=== PATIENT | female | born 1955 | race Caucasian/White ===

== ENCOUNTER 2017-05-12 03:17 | Emergency (ER) ==
[2017-05-12] MEDS ORDERED: PROTONIX IV IVP STA (03:35)
[2017-05-12] MEDS ORDERED: DEMEROL 25 MG/ML SYRINGE IVP STA (03:35)
[2017-05-12] MEDS ORDERED: ZOFRAN 4 MG/2 ML IVP STA (03:35)
--- NOTE | 2017-05-12 03:38 | ED.PDOC ---
General ED Provider: Dr. AMRIT MENCHACA Chief Complaint: Nausea/Vomiting Stated Complaint: Been vomiting since tuesday, not able to keep anything down, watery, and avtar material, non bloody. hurting in the upper belly. Time Seen by Physician: 03:36 Mode of Arrival: Walk-In Information Source: Patient Primary Care Provider: TEE ÁLVAREZ Nursing and Triage Documentation Reviewed and Agree: Yes GI Complaint Exam - Abdominal Pain Complaint/Exam Onset: Gradual Symptoms Are: Still present Timing: Constant Initial Severity: Moderate Current Severity: Moderate Location of Pain: Epigastric Radiates To: Reports: Back Character: Reports: Dull, Aching Aggravating: Reports: Movement, Food Alleviating: Reports: Vomiting Associated Signs and Symptoms: Reports: Nausea, Vomiting, Decreased activity. Denies: Diaphoresis, Fever, Cough, Chest pain, Dizziness, Back pain, Constipation, Blood in stool, Dysuria, Urinary frequency, Decreased urine output , Decreased appetite, Vaginal bleeding, Vaginal discharge, Diarrhea, Sore throat AAA Risk Factors: Reports: None Cardiac Risk Factors: Reports: None Ectopic Risk Factors: Reports: None Ovarian Torsion Risk Factors: Reports: None Surgical Obstruction Risk Factors: Reports: None Related Surgical History: Reports: None Patient Rh Status: Unknown Abdominal Findings: Absent: Pulsatile mass, Abdominal distention, Unequal femoral pulses Differential Diagnoses: Gastroenteritis, Pancreatitis, PUD Review of Systems - Review Of Systems Constitutional: Reports: Malaise, Weakness Eyes: Reports: No symptoms Ears, Nose, Mouth, Throat: Reports: No symptoms Respiratory: Reports: No symptoms Cardiac: Reports: No symptoms GI: Reports: Abdomen distended, Abdominal pain, Nausea : Reports: No symptoms Musculoskeletal: Reports: No symptoms Skin: Reports: No symptoms Neurological: Reports: No symptoms Endocrine: Reports: No symptoms Hematologic/Lymphatic: Reports: No symptoms All Other Systems: Reviewed and Negative Past Medical History - Past Medical History Previously Healthy: Yes Endocrine: Reports: None Cardiovascular: Reports: None Respiratory: Reports: COPD Hematological: Reports: Anemia Gastrointestinal: Reports: None Genitourinary: Reports: None Neuro/Psych: Reports: None Musculoskeletal: Reports: None Cancer: Reports: None Last Menstrual Period: PT HAS HAD A HYSTERECTOMY - Surgical History General Surgical History: Reports: Adenoidectomy, Hysterectomy, Cholecystectomy , Other - Family History Family History: Reports: Unknown - Social History Smoking Status: Current every day smoker, Heavy tobacco smoker Smoking Cessation Counseling Time: > 10 min Hx Substance Use: No Alcohol Screening: None - Immunizations Tetanus Shot up to Date: Yes Physical Exam - Physical Exam Appearance: Ill-appearing, Thin Ill-appearing: Moderate Pain Distress: Moderate Eyes: SHO, EOMI, Conjunctiva clear ENT: Ears normal, Nose normal, Oropharynx normal Respiratory: Airway patent, Breath sounds clear, Breath sounds equal, Respirations nonlabored Cardiovascular: RRR, Pulses normal, No rub, No murmur GI/: Soft, Tender, Bowel sounds hypoactive Musculoskeletal: Normal strength, ROM intact, No edema, No calf tenderness Skin: Warm, Dry, Normal color Neurological: Sensation intact, Motor intact, Reflexes intact, Cranial nerves intact, Alert, Oriented Psychiatric: Affect appropriate, Mood appropriate Interpretation - Radiology Interpretation Radiology Interpretation By: Radiologist Radiology Results: Positive (gastroenteritis) Exam Interpreted: CT Scan Critical Care Note - Critical Care Note Total Time (mins): 0 Course - Course Hematology/Chemistry: 05/12/17 03:40 05/12/17 03:40 Orders, Labs, Meds: Lab Review 05/12/17 03:40 WBC 10.87 H RBC 5.18 Hgb 15.6 Hct 44.6 MCV 86.1 MCH 30.1 MCHC 35.0 RDW Coeff of David 14.8 Plt Count 284 Immature Gran % (Auto) 0.4 Neut % (Auto) 61.3 Lymph % (Auto) 26.6 Edmonson % (Auto) 10.7 H Eos % (Auto) 0.4 Baso % (Auto) 0.6 Immature Gran # (Auto) 0.0 Neut # 6.7 Lymph # 2.9 Edmonson # 1.2 Eos # 0.0 Baso # 0.1 Sodium 135 L Potassium 3.5 Chloride 98 Carbon Dioxide 21 L Anion Gap 19.5 BUN 14 Creatinine 0.72 Estimated GFR (MDRD) 82.00 BUN/Creatinine Ratio 19.44 Glucose 81 L Calcium 9.2 Total Bilirubin 0.74 AST 19 ALT 13 Alkaline Phosphatase 79 Total Protein 7.0 Albumin 3.9 Globulin 3.1 Albumin/Globulin Ratio 1.26 Amylase 53 Lipase 21 Orders Category Date Time Status ED IV/MEDIPORT/POWERPORT .ONCE EMERGENCY 05/12/17 03:35 Active AMYLASE Stat LAB 05/12/17 03:40 Completed CBC W/ AUTO DIFF Stat LAB 05/12/17 03:40 Completed COMPREHENSIVE METABOLIC PANEL Stat LAB 05/12/17 03:40 Completed LIPASE Stat LAB 05/12/17 03:40 Completed 0.9 % Sodium Chloride [Saline Flush] MEDS 05/12/17 03:35 Ordered 1 syr IVF PRN PRN Meperidine HCl/Pf [Demerol 25 mg/ml Syringe] MEDS 05/12/17 03:35 Discontinued 25 mg IVP ONCE STA Ondansetron HCl/Pf [Zofran 4 mg/2 ml] MEDS 05/12/17 03:35 Discontinued 4 mg IVP ONCE STA Pantoprazole Sodium [Protonix IV] MEDS 05/12/17 03:35 Discontinued 40 mg IVP ONCE STA Sodium Chloride 0.9% [Sodium Chloride] 1,000 ml MEDS 05/12/17 04:08 Active IV 100 mls/hr CT ABDOMEN/PELVIS WO CONTRAST Stat RADS 05/12/17 03:35 Completed Medications Generic Name Dose Route Start Last Admin Trade Name Freq PRN Reason Stop Dose Admin Sodium Chloride 1,000 mls @ 100 mls/hr 05/12/17 04:08 05/12/17 04:28 Sodium Chloride IV 05/12/17 14:07 100 mls/hr .Q10H STA Administration Sodium Chloride 1 syr 05/12/17 03:35 05/12/17 04:03 Saline Flush IVF 1 syr PRN PRN Administration To flush IV Discontinued Medications Generic Name Dose Route Start Last Admin Trade Name Freq PRN Reason Stop Dose Admin Meperidine HCl 25 mg 05/12/17 03:35 05/12/17 04:03 Demerol 25 Mg/Ml Syringe IVP 05/12/17 03:36 25 mg ONCE STA Administration Ondansetron HCl 4 mg 05/12/17 03:35 05/12/17 04:03 Zofran 4 Mg/2 Ml IVP 05/12/17 03:36 4 mg ONCE STA Administration Pantoprazole Sodium 40 mg 05/12/17 03:35 05/12/17 04:03 Protonix Iv IVP 05/12/17 03:36 40 mg ONCE STA Administration Vital Signs: Temp Pulse Resp BP Pulse Ox 05/12/17 03:18 98.8 F 78 20 134/94 H 95 Departure - Departure Time of Disposition: 03:55 Disposition: HOME SELF-CARE Discharge Problem: Gastroenteritis Instructions: Dehydration (ED) Condition: Stable Pt referred to PMD for follow-up: Yes Additional Instructions: INCREASE HYDRATION SOFT DIET FOR 3-4 DAYS. F/U WITH PMD Prescriptions: Ondansetron HCl [Zofran] 4 mg PO TID #14 tablet Allergies/Adverse Reactions: Allergies Penicillins Adverse Reaction (Verified 05/12/17 03:26) Hives Home Medications: Ambulatory Orders Hydrocodone/Acetaminophen [Hydrocodon-Acetaminoph 7.5-500] 1 each PO BID PRN Diazepam 5 mg PO TID 12/08/14 Albuterol Sulfate [Proair Hfa] 2 puff IH BID 09/17/15 Pantoprazole Sodium [Protonix] 40 mg PO DAILY LAB #30 tablet. 09/20/15 Ondansetron HCl [Zofran] 4 mg PO TID #14 tablet 05/12/17 Disposition Discussed With: Patient, Family
[2017-05-12 03:46] VITALS: BP 134/94; TEMP 98.8; BMI 18.8
[2017-05-12 03:46] LABS: BASOPHILS # (AUTO) 0.1 K/uL (0-0.2); BASOPHILS % (AUTO) 0.6 % (0.0-3.0); EOSINOPHILS % (AUTO) 0.4 % (0.0-7.0); HEMATOCRIT 44.6 % (37.0-47.0); HEMOGLOBIN 15.6 g/dl (12.0-16.0); IMMATURE GRANULOCYTE % (AUTO) 0.4 % (0.0-5.0); LYMPHOCYTES # (AUTO) 2.9 K/uL (0.60-3.4); LYMPHOCYTES % (AUTO) 26.6 (10.0-50.0); MEAN CORPUSCULAR HEMOGLOBIN 30.1 pg (27.0-31.0); MEAN CORPUSCULAR VOLUME 86.1 fl (81.0-99.0); MONOCYTES # (AUTO) 1.2 K/uL (0.4-2.0); MONOCYTES % (AUTO) 10.7 (0-10); NEUTROPHILS # (AUTO) 6.7 K/ul (2.0-6.9); NEUTROPHILS % (AUTO) 61.3; PLATELET COUNT 284 10^3/uL (140-440); RED BLOOD COUNT 5.18 10^6/ul (4.20-5.40); WHITE BLOOD COUNT 10.87 K/ul (4.6-10.2)
[2017-05-12 04:03] LABS: ALBUMIN 3.9 g/dL (3.4-5.0); ALBUMIN/GLOBULIN RATIO 1.26; ANION GAP 19.5; BILIRUBIN,TOTAL 0.74 mg/dL (0.00-1.20); BUN/CREATININE RATIO 19.44; CALCIUM 9.2 mg/dL (8.2-10.2); CREATININE 0.72 mg/dL (0.60-1.30); POTASSIUM 3.5 mmol/L (3.5-5.10)
[2017-05-12] MEDS ORDERED: SODIUM CHLORIDE 1,000 ML IV STA (04:08)
--- NOTE | 2017-05-12 04:45 | CT ---
EXAM: CT scan abdomen pelvis without contrast HISTORY: Abdominal pain with nausea vomiting COMPARISON: CT scan abdomen pelvis 09/18/2015 FINDINGS: Contiguous axial images were obtained from lung bases to the symphysis pubis without cont rast utilizing 3-mm collimation. Sagittal and coronal reconstructions were imaged and reviewed.. S table scarring is noted at the right lung base. There has been prior cholecystectomy.. The liver p ancreas and adrenal glands have normal unenhanced CT appearance. There is a small spleen which cont ains calcification. . Stomach mildly distended with air fluid. There are prominent small bowel loo ps within the left upper quadrant. Atherosclerotic changes are seen involving the aorta without aneu rysm formation. There is an IVC filter.. There has been prior hysterectomy. There is no evidence o f free fluid or inflammatory changes.. Degenerative changes are seen within the lumbar spine and bi lateral hips. IMPRESSION: Stable right basilar scarring. Prior cholecystectomy. IVC filter. ASVD without aneurysm. Prior hysterectomy. Mild fluid distension of the stomach with prominent small bowel loops left upper quadrant. Findings may related to gastroenteritis. No evidence of obstruction or free fluid.
[2017-05-13 13:57] VITALS: BMI 19.5
== END 2017-05-12 06:10 | disposition home or self-care (01) ==
LOC: ED 03:17
DX: K52.9 Noninfective gastroenteritis and colitis, unspecified (principal); E86.0 Dehydration; Z79.899 Other long term (current) drug therapy; F17.210 Nicotine dependence, cigarettes, uncomplicated
CPT/HCPCS: 36415; 80053; 82150; 83690; 85025; 96361; 96374; 96375; 99284

== ENCOUNTER 2017-05-13 10:27 | Inpatient (IN) ==
[2017-05-13 11:02] LABS: BASOPHILS # (AUTO) 0.1 K/uL (0-0.2); BASOPHILS % (AUTO) 0.3 % (0.0-3.0); HEMATOCRIT 48.6 % (37.0-47.0); HEMOGLOBIN 16.8 g/dl (12.0-16.0); IMMATURE GRANULOCYTE % (AUTO) 0.3 % (0.0-5.0); LYMPHOCYTES # (AUTO) 1.5 K/uL (0.60-3.4); LYMPHOCYTES % (AUTO) 8.2 (10.0-50.0); MEAN CORPUSCULAR HEMOGLOBIN 29.9 pg (27.0-31.0); MEAN CORPUSCULAR HGB CONC 34.6 (31.8-35.4); MEAN CORPUSCULAR VOLUME 86.6 fl (81.0-99.0); MONOCYTES # (AUTO) 1.3 K/uL (0.4-2.0); MONOCYTES % (AUTO) 7.4 (0-10); NEUTROPHILS # (AUTO) 14.8 K/ul (2.0-6.9); NEUTROPHILS % (AUTO) 83.8; PLATELET COUNT 276 10^3/uL (140-440); RED BLOOD COUNT 5.61 10^6/ul (4.20-5.40); WHITE BLOOD COUNT 17.66 K/ul (4.6-10.2)
[2017-05-13] MEDS ORDERED: SODIUM CHLORIDE 1,000 ML IV STA (11:07)
[2017-05-13] MEDS ORDERED: GI COCKTAIL PO STA (11:08)
[2017-05-13] MEDS ORDERED: ZOFRAN 4 MG/2 ML IVP STA (11:08)
[2017-05-13 11:25] LABS: ALANINE AMINOTRANSFERASE 15 U/L (12-78); ALBUMIN/GLOBULIN RATIO 1.21; ALKALINE PHOSPHATASE 87 U/L (53-141); AMYLASE 54 U/L (25-115); ANION GAP 20.6; ASPARTATE AMINO TRANSFERASE 21 U/L (15-37); BILIRUBIN,TOTAL 0.96 mg/dL (0.00-1.20); BLOOD UREA NITROGEN 13 mg/dL (7-18); BUN/CREATININE RATIO 17.56; CALCIUM 9.5 mg/dL (8.2-10.2); CARBON DIOXIDE 22 mmol/L (23-31); CHLORIDE 98 mmol/L (98-107); CREATINE KINASE 27 U/L; CREATININE 0.74 mg/dL (0.60-1.30); GLUCOSE 91 mg/dL (82-115); LIPASE 13 U/L (8-78); POTASSIUM 3.6 mmol/L (3.5-5.10); SODIUM 137 mmol/L (136-145); TOTAL PROTEIN 7.3 g/dL (5.8-8.1)
--- NOTE | 2017-05-13 11:54 | CT ---
EXAM: CT Abdomen with contrast. CT Pelvis with contrast. HISTORY: Upper abdominal pain and vomiting. COMPARISON: 05/12/2017. TECHNIQUE: Multiple axial images of the abdomen and pelvis were obtained following intravenous admi nistration of Omnipaque-300, low osmolar. Images were reformatted in the coronal plane. FINDINGS: Old rib fractures, pubic ring fractures and sacral coccygeal fracture noted. Right basil ar scarring appears stable. Gallbladder is absent. The liver, pancreas, spleen, adrenal glands, and kidneys are without acute a bnormality. Tiny left renal cyst noted. There is moderate fluid distension of the stomach. The small and large bowel are normal in caliber without evidence for obstruction or inflammatory process. The appendix is not seen. Nonenlarged me senteric lymph nodes are present. Uterus is absent. Urinary bladder is unremarkable. Phleboliths noted in the pelvis. Atherosclerotic calcifications are present. Inferior vena cava filter noted. No free fluid or free air detected. IMPRESSION: Moderate fluid distension of the stomach could be due to gastroenteritis.
--- NOTE | 2017-05-13 12:14 | ED.PDOC ---
General ED Provider: Dr. BELINDA WEBBER Chief Complaint: Nausea/Vomiting Stated Complaint: abdominal pain Time Seen by Physician: 10:30 (seen last night in ER) Mode of Arrival: Walk-In Information Source: Patient, Family Exam Limitations: No limitations Primary Care Provider: TEE ÁLVAREZ Nursing and Triage Documentation Reviewed and Agree: Yes (SEEN WITH NURSING AT ALL TIMES AND ASAEL PA STUDENT) GI Complaint Exam - Abdominal Pain Complaint/Exam Onset: Gradual Duration: 1 DAY Symptoms Are: Still present Timing: Intermittent Initial Severity: Moderate Current Severity: Moderate Location of Pain: Diffuse Character: Reports: Aching Aggravating: Reports: None Alleviating: Reports: None Associated Signs and Symptoms: Denies: Diaphoresis, Fever, Cough, Chest pain, Dizziness, Back pain, Constipation, Blood in stool, Dysuria, Urinary frequency, Decreased urine output, Decreased appetite, Vaginal bleeding, Vaginal discharge , Nausea, Vomiting, Diarrhea, Sore throat, Decreased activity Related History: Reports: Similar episode AAA Risk Factors: Reports: None Cardiac Risk Factors: Reports: None Ectopic Risk Factors: Reports: None Ovarian Torsion Risk Factors: Reports: None Surgical Obstruction Risk Factors: Reports: None Related Surgical History: Reports: None Patient Rh Status: Unknown Abdominal Findings: Present: None Differential Diagnoses: Appendicitis, Bowel Obstruction, Constipation, Gastroenteritis, Pancreatitis, UTI Quality Indicators for AMI: EKG in 10min. Quality Indicators for Cardiac Chest Pain: EKG in 10min. Quality Indicator For Non-Traumatic Chest Pain/Syncope: EKG Performed Review of Systems - Review Of Systems Constitutional: Reports: No symptoms Eyes: Reports: No symptoms Ears, Nose, Mouth, Throat: Reports: No symptoms Respiratory: Reports: No symptoms Cardiac: Reports: No symptoms GI: Reports: Abdominal pain : Reports: No symptoms Musculoskeletal: Reports: No symptoms Skin: Reports: No symptoms Neurological: Reports: No symptoms Endocrine: Reports: No symptoms Hematologic/Lymphatic: Reports: No symptoms All Other Systems: Reviewed and Negative Past Medical History - Past Medical History Previously Healthy: Yes Endocrine: Reports: None Cardiovascular: Reports: None Respiratory: Reports: COPD Hematological: Reports: Anemia Gastrointestinal: Reports: None Genitourinary: Reports: None Neuro/Psych: Reports: None Musculoskeletal: Reports: None Cancer: Reports: None Last Menstrual Period: 1979 - Surgical History General Surgical History: Reports: Adenoidectomy, Hysterectomy, Cholecystectomy , Other - Family History Family History: Reports: Unknown - Social History Smoking Status: Current every day smoker, Heavy tobacco smoker Hx Substance Use: No Alcohol Screening: None - Immunizations Tetanus Shot up to Date: Yes Physical Exam - Physical Exam Appearance: Well-appearing, No pain distress, Well-nourished Eyes: SHO, EOMI, Conjunctiva clear ENT: Ears normal, Nose normal, Oropharynx normal Respiratory: Airway patent, Breath sounds clear, Breath sounds equal, Respirations nonlabored Cardiovascular: RRR, Pulses normal, No rub, No murmur GI/: Soft, Nontender, No masses, Bowel sounds normal, No Organomegaly Musculoskeletal: Normal strength, ROM intact, No edema, No calf tenderness Skin: Warm, Dry, Normal color Neurological: Sensation intact, Motor intact, Reflexes intact, Cranial nerves intact, Alert, Oriented Psychiatric: Affect appropriate, Mood appropriate Interpretation - Radiology Interpretation Radiology Interpretation By: Radiologist Radiology Results: No acute changes Physician Notification - Case Discussed Physician Notified: RONJTALI Time of Notification: 12:14 (ADMITT) Admit To: Inpatient Critical Care Note - Critical Care Note Total Time (mins): 0 Course - Course Hematology/Chemistry: 05/13/17 10:55 05/13/17 10:55 Orders, Labs, Meds: Lab Review 05/13/17 10:55 WBC 17.66 H D RBC 5.61 H Hgb 16.8 H Hct 48.6 H MCV 86.6 MCH 29.9 MCHC 34.6 RDW Coeff of David 14.7 Plt Count 276 Immature Gran % (Auto) 0.3 Neut % (Auto) 83.8 Lymph % (Auto) 8.2 L Grady % (Auto) 7.4 Eos % (Auto) 0.0 Baso % (Auto) 0.3 Immature Gran # (Auto) 0.1 Neut # 14.8 H Lymph # 1.5 Grady # 1.3 Eos # 0.0 Baso # 0.1 Sodium 137 Potassium 3.6 Chloride 98 Carbon Dioxide 22 L Anion Gap 20.6 BUN 13 Creatinine 0.74 Estimated GFR (MDRD) 80.00 BUN/Creatinine Ratio 17.56 Glucose 91 Calcium 9.5 Total Bilirubin 0.96 AST 21 ALT 15 Alkaline Phosphatase 87 Total Creatine Kinase 27 Troponin I < 0.0100 Total Protein 7.3 Albumin 4.0 Globulin 3.3 Albumin/Globulin Ratio 1.21 Amylase 54 Lipase 13 Orders Category Date Time Status ADMIT PATIENT INPATIENT .TO MEDSURG (NON-MONITORED ADMISSION 05/13/17 12: 08 Ordered BED) EKG-(ED ONLY) Stat CARDIO 05/13/17 10:47 Completed ACTIVITY .BR with BRP CARE 05/13/17 12:08 Ordered NPO REMINDER: IMAGING ONCE CARE 05/13/17 11:09 Completed VITAL SIGNS Q8HR CARE 05/13/17 12:08 Ordered REGULAR DIET DIETARY 05/13/17 Lunch Ordered ED IV/MEDIPORT/POWERPORT .ONCE EMERGENCY 05/13/17 10:47 Active ED IV/MEDIPORT/POWERPORT .ONCE EMERGENCY 05/13/17 11:07 Active AMYLASE Stat LAB 05/13/17 10:55 Completed CBC W/ AUTO DIFF DAILY@0600 LAB 05/14/17 06:00 Ordered CBC W/ AUTO DIFF DAILY@0600 LAB 05/15/17 06:00 Ordered CBC W/ AUTO DIFF DAILY@0600 LAB 05/16/17 06:00 Ordered CBC W/ AUTO DIFF DAILY@0600 LAB 05/17/17 06:00 Ordered CBC W/ AUTO DIFF DAILY@0600 LAB 05/18/17 06:00 Ordered CBC W/ AUTO DIFF DAILY@0600 LAB 05/19/17 06:00 Ordered CBC W/ AUTO DIFF DAILY@0600 LAB 05/20/17 06:00 Ordered CBC W/ AUTO DIFF DAILY@0600 LAB 05/21/17 06:00 Ordered CBC W/ AUTO DIFF DAILY@0600 LAB 05/22/17 06:00 Ordered CBC W/ AUTO DIFF DAILY@0600 LAB 05/23/17 06:00 Ordered CBC W/ AUTO DIFF DAILY@0600 LAB 05/24/17 06:00 Ordered CBC W/ AUTO DIFF DAILY@0600 LAB 05/25/17 06:00 Ordered CBC W/ AUTO DIFF DAILY@0600 LAB 05/26/17 06:00 Ordered CBC W/ AUTO DIFF DAILY@0600 LAB 05/27/17 06:00 Ordered CBC W/ AUTO DIFF DAILY@0600 LAB 05/28/17 06:00 Ordered CBC W/ AUTO DIFF DAILY@0600 LAB 05/29/17 06:00 Ordered CBC W/ AUTO DIFF DAILY@0600 LAB 05/30/17 06:00 Ordered CBC W/ AUTO DIFF DAILY@0600 LAB 05/31/17 06:00 Ordered CBC W/ AUTO DIFF DAILY@0600 LAB 06/01/17 06:00 Ordered CBC W/ AUTO DIFF DAILY@0600 LAB 06/02/17 06:00 Ordered CBC W/ AUTO DIFF Stat LAB 05/13/17 10:55 Completed COMPREHENSIVE METABOLIC PANEL Stat LAB 05/13/17 10:55 Completed CREATINE KINASE Stat LAB 05/13/17 10:55 Completed LIPASE Stat LAB 05/13/17 10:55 Completed TROPONIN I Stat LAB 05/13/17 10:55 Completed UA [URINALYSIS C & S IF INDICATED] Stat LAB 05/13/17 11:09 Uncollected 0.9 % Sodium Chloride [Saline Flush] MEDS 05/13/17 10:47 Active 1 syr IVF PRN PRN 0.9 % Sodium Chloride [Saline Flush] MEDS 05/13/17 11:07 Active 1 syr IVF PRN PRN Albuterol Sulfate [Proair Hfa] MEDS 05/13/17 21:00 Ordered 2 puff IH BID Mag-Al Plus//Lidocaine [Gi Cocktail] MEDS 05/13/17 11:08 Discontinued 30 ml PO ONCE STA Ondansetron HCl/Pf [Zofran 4 mg/2 ml] MEDS 05/13/17 11:08 Discontinued 4 mg IVP ONCE STA Sodium Chloride 0.9% [Sodium Chloride] 1,000 ml MEDS 05/13/17 12:30 Ordered IV 250 mls/hr Sodium Chloride 0.9% [Sodium Chloride] 1,000 ml MEDS 05/13/17 11:[address] ABDOMEN/PELVIS W CONTRAST Stat RADS 05/13/17 11:09 Completed Medications Generic Name Dose Route Start Last Admin Trade Name Freq PRN Reason Stop Dose Admin Albuterol Sulfate 2 puff 05/13/17 21:00 Proair Hfa IH BID DEE DEE Sodium Chloride 1,000 mls @ 250 mls/hr 05/13/17 12:30 Sodium Chloride IV .Q4H DEE DEE Sodium Chloride 1 syr 05/13/17 10:47 Saline Flush IVF PRN PRN To flush IV Sodium Chloride 1 syr 05/13/17 11:07 05/13/17 11:18 Saline Flush IVF 1 syr PRN PRN Administration To flush IV Discontinued Medications Generic Name Dose Route Start Last Admin Trade Name Freq PRN Reason Stop Dose Admin Al Hydroxide/Mg Hydroxide 30 ml 06/30/17 11:08 05/13/17 11:16 Gi Cocktail PO 05/13/17 11:09 30 ml ONCE STA Administration Sodium Chloride 1,000 mls @ 1,000 mls/hr 05/13/17 11:07 05/13/17 11:18 Sodium Chloride IV 05/13/17 12:06 1,000 mls/hr BOLUS STA Administration Ondansetron HCl 4 mg 05/13/17 11:08 05/13/17 11:17 Zofran 4 Mg/2 Ml IVP 05/13/17 11:09 4 mg ONCE STA Administration Vital Signs: Temp Pulse Resp BP Pulse Ox 05/13/17 10:27 98.3 F 101 H 20 113/80 93 L Departure - Departure Time of Disposition: 12:15 Disposition: ADMITTED INPATIENT Discharge Problem: Abdominal pain Qualifiers: Abdominal location: unspecified location Qualifier Code: (R10.9) Unspecified abdominal pain Instructions: Abdominal Pain (ED) Condition: Good Pt referred to PMD for follow-up: No Additional Instructions: Please call your Family Physician as soon as possible to schedule a follow-up appointment. Allergies/Adverse Reactions: Allergies Penicillins Adverse Reaction (Verified 05/12/17 03:26) Hives Home Medications: Ambulatory Orders Hydrocodone/Acetaminophen [Hydrocodon-Acetaminoph 7.5-500] 1 each PO BID PRN Diazepam 5 mg PO TID 12/08/14 Albuterol Sulfate [Proair Hfa] 2 puff IH BID 09/17/15 Pantoprazole Sodium [Protonix] 40 mg PO DAILY LAB #30 tablet. 09/20/15 Ondansetron HCl [Zofran] 4 mg PO TID #14 tablet 05/12/17
[2017-05-13] MEDS ORDERED: SODIUM CHLORIDE 1,000 ML IV SCH (12:30)
[2017-05-13] MEDS ORDERED: ZOFRAN 4 MG/2 ML IVP SCH (13:00)
[2017-05-13] MEDS: DEMEROL 25 MG/ML SYRINGE IVP SCH ×2 (13:11→18:25)
[2017-05-13 13:57] VITALS: BMI 19.5
[2017-05-13] MEDS: PROTONIX IV IVP SCH (14:25)
[2017-05-13 15:32] LABS: BILIRUBIN,URINE 1+ (NEGATIVE); KETONES,URINE 3+ (NEGATIVE); LEUKOCYTE ESTERASE ,URINE Negative (NEGATIVE); NITRITE,URINE Negative (NEGATIVE); PH,URINE 5.5 (5-9); PROTEIN,URINE Negative (NEGATIVE); URINE, BLOOD 1+ (NEGATIVE)
[2017-05-13 15:47] LABS: ADD URINE MICROSCOPIC YES
[2017-05-13 15:50] LABS: GRANULAR CASTS,URINE 0-2 (NOT PRESENT)
[2017-05-13] MEDS: SODIUM CHLORIDE 1,000 ML IV SCH (18:43)
[2017-05-13] MEDS ORDERED: ROCEPHIN ONE (20:07)
[2017-05-13] MEDS: ZOFRAN 4 MG/2 ML IVP PRN (20:16)
[2017-05-13] MEDS: DEMEROL 25 MG/ML SYRINGE IVP PRN (20:16)
[2017-05-13] MEDS: PROAIR HFA IH SCH (20:19)
[2017-05-13] MEDS ORDERED: ROCEPHIN 1 GM in SODIUM CHLORIDE 50 ML IV SCH (20:30)
[2017-05-13] MEDS: GI COCKTAIL PO SCH (22:09)
[2017-05-14 04:25] LABS: BASOPHILS # (AUTO) 0.1 K/uL (0-0.2); BASOPHILS % (AUTO) 0.5 % (0.0-3.0); EOSINOPHILS # (AUTO) 0.1 K/ul (0.0-0.7); EOSINOPHILS % (AUTO) 0.4 % (0.0-7.0); HEMATOCRIT 39.4 % (37.0-47.0); HEMOGLOBIN 13.6 g/dl (12.0-16.0); IMMATURE GRANULOCYTE % (AUTO) 0.4 % (0.0-5.0); LYMPHOCYTES # (AUTO) 3.9 K/uL (0.60-3.4); MEAN CORPUSCULAR HEMOGLOBIN 30.4 pg (27.0-31.0); MEAN CORPUSCULAR HGB CONC 34.5 (31.8-35.4); MEAN CORPUSCULAR VOLUME 87.9 fl (81.0-99.0); MONOCYTES # (AUTO) 1.3 K/uL (0.4-2.0); MONOCYTES % (AUTO) 9.4 (0-10); NEUTROPHILS # (AUTO) 8.2 K/ul (2.0-6.9); NEUTROPHILS % (AUTO) 60.3; PLATELET COUNT 257 10^3/uL (140-440); RED BLOOD COUNT 4.48 10^6/ul (4.20-5.40); WHITE BLOOD COUNT 13.56 K/ul (4.6-10.2)
[2017-05-14] MEDS: DEMEROL 25 MG/ML SYRINGE IVP PRN ×3 (05:43→22:12)
[2017-05-14] MEDS: ZOFRAN 4 MG/2 ML IVP PRN ×2 (05:43→13:16)
[2017-05-14] MEDS: GI COCKTAIL PO SCH ×3 (09:29→21:07)
[2017-05-14] MEDS: PROAIR HFA IH SCH ×2 (09:29→21:07)
[2017-05-14] MEDS: PROTONIX IV IVP SCH (09:30)
[2017-05-14] MEDS: SODIUM CHLORIDE 1,000 ML IV SCH (14:48)
[2017-05-14] MEDS ORDERED: ROCEPHIN 1 GM in SODIUM CHLORIDE 50 ML IV SCH (21:00)
[2017-05-15 04:21] LABS: BASOPHILS % (AUTO) 0.3 % (0.0-3.0); EOSINOPHILS # (AUTO) 0.2 K/ul (0.0-0.7); EOSINOPHILS % (AUTO) 1.1 % (0.0-7.0); HEMATOCRIT 35.6 % (37.0-47.0); HEMOGLOBIN 12.4 g/dl (12.0-16.0); IMMATURE GRANULOCYTE % (AUTO) 0.4 % (0.0-5.0); LYMPHOCYTES # (AUTO) 3.3 K/uL (0.60-3.4); LYMPHOCYTES % (AUTO) 22.1 (10.0-50.0); MEAN CORPUSCULAR HEMOGLOBIN 30.4 pg (27.0-31.0); MEAN CORPUSCULAR HGB CONC 34.8 (31.8-35.4); MEAN CORPUSCULAR VOLUME 87.3 fl (81.0-99.0); MONOCYTES # (AUTO) 1.6 K/uL (0.4-2.0); MONOCYTES % (AUTO) 10.8 (0-10); NEUTROPHILS # (AUTO) 9.8 K/ul (2.0-6.9); NEUTROPHILS % (AUTO) 65.3; PLATELET COUNT 230 10^3/uL (140-440); RED BLOOD COUNT 4.08 10^6/ul (4.20-5.40); WHITE BLOOD COUNT 15.04 K/ul (4.6-10.2)
[2017-05-15] MEDS: PROAIR HFA IH SCH (09:30)
[2017-05-15] MEDS: GI COCKTAIL PO SCH ×2 (09:31→14:49)
[2017-05-15] MEDS: PROTONIX IV IVP SCH (09:31)
[2017-05-15] MEDS: SODIUM CHLORIDE 1,000 ML IV SCH (11:53)
[2017-05-15 16:00] VITALS: BP 121/71; TEMP 98.5
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
--- NOTE | 2017-06-02 09:26 | PN ---
DATE OF SERVICE: 05/14/17 SUBJECTIVE: The patient was admitted with acute gastroenteritis. The patient still feels weak and tired. Still complains about the epigastric pain and not able to keep anything down. No vomiting with the GI cocktail and Zofran. The patient is still having the abdominal pain. Demerol is helping and she wants to try some food today. REVIEW OF SYSTEMS: CONSTITUTIONAL: No fever, no chills. HEENT: Normal. ENDOCRINE: No weight gain, no weight loss. CVS: No angina symptoms. No CHF symptoms. No palpitations. No atypical chest pain for CAD. No shortness of breath. No PND, no orthopnea. RESPIRATORY: No cough, no hemoptysis. GI: No nausea, no vomiting. No abdominal pain. : No hematuria. No polyuria. MUSCULOSKELETAL:. No joint swelling. PSYCHIATRIC: Not anxious. No depression. No suicidal thoughts. No homicidal thoughts. SKIN: Intact. No rash. PHYSICAL EXAMINATION: V/S: Blood pressure 135/81, respiratory rate 18, heart rate 86 and temperature 98.7 with saturation 94%. GENERAL: Cachetic lady sitting in the bed. HEENT: Normocephalic, atraumatic. Mucosa dry. Epigastric tenderness present. NECK: Supple. No JVD, no carotid bruit. No lymphadenopathy. LUNGS: Clear to auscultation. No rales or rhonchi. HEART: S1, S2 normal. No S3. No murmur, gallop or regurgitation. ABDOMEN: Soft, nontender. Bowel sounds hyperactive. No rigidity. No rebound or guarding. No CVA tenderness. EXTREMITIES: No clubbing, cyanosis or pedal edema. MUSCULOSKELETAL: No joint swelling. NEUROLOGIC: Awake, alert, oriented times three. No focal deficit. LYMPHATIC: No lymph nodes palpable. SKIN: Intact. LABS: WBC 13.56, hgb 13.6, hct 39.4, plt count 257, Sodium 137, potassium 3.6, chloride 98, bicarb 22, BUN 13, creatinine 0.74. ASSESSMENT: 1. Acute gastroenteritis 2. Leukocytosis from the Dehydration 3. History of GERD 4. Osteoarthritis 5. DJD spine 6. COPD 7. Anxiety PLAN: 1. Clear liquid diet 2. Continue Demerol and Zofran 3. Out of bed to chair activity as tolerated 4. Continue Carafate, GI cocktail, Protonix TIME SPENT: More than 30 minutes MTDD
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
== END 2017-05-15 17:35 | disposition home or self-care (01) | DRG 392 ==
LOC: ED 10:27 → MEDSURG A 12:22
PROVIDERS: ADMIT Emergency Medicine; ATTEND Emergency Medicine
DX: K52.9 Noninfective gastroenteritis and colitis, unspecified (principal); K31.0 Acute dilatation of stomach; D72.829 Elevated white blood cell count, unspecified; K27.9 Peptic ulcer, site unspecified, unspecified as acute or chronic, without hemorrhage or perforation; J44.9 Chronic obstructive pulmonary disease, unspecified; M47.9 Spondylosis, unspecified; F41.9 Anxiety disorder, unspecified; F17.210 Nicotine dependence, cigarettes, uncomplicated; Z87.19 Personal history of other diseases of the digestive system; Z90.49 Acquired absence of other specified parts of digestive tract; Z79.899 Other long term (current) drug therapy
CPT/HCPCS: 36415; 80053; 81001; 82150; 82550; 83690; 84484; 85025; 93005; 93010; 96361; 96374; 96375; 99223; 99233; 99239; 99284

== ENCOUNTER 2019-01-28 14:05 | Emergency (ER) ==
[2019-01-28 14:12] VITALS: BP 149/80; TEMP 97.6; BMI 18.4
[2019-01-28] MEDS ORDERED: SODIUM CHLORIDE 1,000 ML IV STA ×2 (15:00→17:54)
[2019-01-28] MEDS ORDERED: ZOFRAN 4 MG/2 ML IVP STA (15:40)
--- NOTE | 2019-01-28 15:52 | ED.PDOC ---
General ED Provider: Dr. RAFAL DYER Chief Complaint: Nausea/Vomiting Stated Complaint: Nausea vomiting. abdominal cramping. Believes ate some food that made her ill. Denies cough or congestion Time Seen by Physician: 14:30 Mode of Arrival: Walk-In Information Source: Patient, Family Exam Limitations: No limitations Primary Care Provider: TEE ÁLVAREZ Referred to ED by: PCP Nursing and Triage Documentation Reviewed and Agree: Yes Does patient meet sepsis criteria?: No System Inflammatory Response Syndrome: Not Applicable Sepsis Protocol: For patient's 13 years and over: Temp is 96.8 and below OR 101 and greater Pulse >90 BPM Resp >20/minute Acutely Altered Mental Status Are patient's symptoms suggestive of a new infection, such as: -Pneumonia -Skin, Soft Tissue -Endocarditis -UTI -Bone, Joint Infection -Implantable Device -Acute Abdominal Infection -Wound Infection -Meningitis -Blood Stream Catheter Infection -Unknown GI Complaint Exam - Abdominal Pain Complaint/Exam Onset: Sudden Duration: 8 hrs Symptoms Are: Still present Timing: Intermittent Initial Severity: Moderate Current Severity: Severe Location of Pain: RUQ, LUQ, Epigastric Radiates To: Reports: Back Character: Reports: Aching, Cramping Aggravating: Reports: Movement Alleviating: Reports: None Associated Signs and Symptoms: Reports: Diaphoresis, Decreased appetite, Nausea , Vomiting AAA Risk Factors: Reports: None Cardiac Risk Factors: Reports: None Ectopic Risk Factors: Reports: None Ovarian Torsion Risk Factors: Reports: None Surgical Obstruction Risk Factors: Reports: None Related Surgical History: Reports: None Abdominal Findings: Present: Other (mild tenderness in mid epigastrium). Absent : Pulsatile mass, Abdominal distention, Rebound tenderness, Peritoneal signs, McBurney's [place] tender, CVA Tenderness Adnexal Exam: Present: Normal Findings Differential Diagnoses: Bowel Obstruction, Gastroenteritis Review of Systems - Review Of Systems Constitutional: Reports: Chills, Malaise, Weakness Eyes: Reports: No symptoms Ears, Nose, Mouth, Throat: Reports: No symptoms Respiratory: Reports: No symptoms Cardiac: Reports: No symptoms GI: Reports: Abdominal pain, Constipated, Nausea, Poor fluid intake, Vomiting : Reports: No symptoms Musculoskeletal: Reports: No symptoms Skin: Reports: No symptoms Neurological: Reports: No symptoms Endocrine: Reports: No symptoms Hematologic/Lymphatic: Reports: No symptoms All Other Systems: Reviewed and Negative Past Medical History - Past Medical History Previously Healthy: Yes Endocrine: Reports: None Cardiovascular: Reports: None Respiratory: Reports: COPD Hematological: Reports: Anemia Gastrointestinal: Reports: None Genitourinary: Reports: None Neuro/Psych: Reports: None Musculoskeletal: Reports: None Cancer: Reports: None Last Menstrual Period: hysterectomy - Surgical History General Surgical History: Reports: Adenoidectomy, Hysterectomy, Cholecystectomy , Other - Family History Family History: Reports: Unknown - Social History Smoking Status: Current every day smoker, Heavy tobacco smoker Hx Substance Use: No Alcohol Screening: None Physical Exam - Physical Exam Appearance: Ill-appearing, Thin Ill-appearing: Moderate Pain Distress: Moderate Eyes: SHO, EOMI, Conjunctiva clear ENT: Ears normal, Nose normal, Oropharynx normal Neck: Supple Respiratory: Airway patent, Breath sounds clear, Breath sounds equal, Respirations nonlabored Cardiovascular: RRR, Pulses normal, No rub, No murmur GI/: Soft, Tender, Bowel sounds hypoactive Musculoskeletal: Normal strength, ROM intact, No edema, No calf tenderness Skin: Warm, Dry, Normal color Neurological: Sensation intact, Motor intact, Reflexes intact, Cranial nerves intact, Alert, Oriented Psychiatric: Affect appropriate, Mood appropriate Interpretation - Radiology Interpretation Radiology Interpretation By: Radiologist Exam Interpreted: CT Scan (abdomen/ gas filled loops small bowel/poss in complete SBO/Changes in chest poss pneunomia) Radiology Results: No acute changes Exam Interpreted: Portable CXR Re-Evaluation - Re-Evaluation Time of Re-Evaluation: 19:00 Status: Improved Vital Signs Stable: Yes Pain Level: none-wants to be discharged Appearance: NAD Lungs: Clear Skin: Warm and Dry Neuro: Alert and Oriented X3 CV: RRR Additional Comments: Abdomen soft and not tender. BS active Critical Care Note - Critical Care Note Total Time (mins): 120 Course - Course Hematology/Chemistry: 01/28/19 16:15 01/28/19 16:15 Orders, Labs, Meds: Lab Review 01/28/19 01/28/19 01/28/19 15:54 16:15 16:15 WBC 21.47 H RBC 4.81 Hgb 14.8 Hct 44.4 MCV 92.3 MCH 30.8 MCHC 33.3 RDW Coeff of David 14.6 Plt Count 417 Immature Gran % (Auto) 0.6 Neut % (Auto) 87.4 Lymph % (Auto) 4.9 L Amador % (Auto) 6.5 Eos % (Auto) 0.2 Baso % (Auto) 0.4 Immature Gran # (Auto) 0.1 Neut # (Auto) 18.8 H Lymph # (Auto) 1.1 Amador # (Auto) 1.4 Eos # (Auto) 0.0 Baso # (Auto) 0.1 Sodium 139.8 Potassium 3.93 Chloride 104.1 Carbon Dioxide 26.8 Anion Gap 12.83 BUN 12.0 Creatinine 0.53 L Estimated GFR (MDRD) 116.00 BUN/Creatinine Ratio 22.64 Glucose 129.8 H Lactic Acid Calcium 8.65 Total Bilirubin 0.37 AST 22.1 ALT 13.3 Alkaline Phosphatase 79.9 Total Protein 7.21 Albumin 3.99 Globulin 3.22 Albumin/Globulin Ratio 1.23 Amylase 78.9 Lipase 38.3 Procalcitonin Urine Color Urine Clarity Urine pH Ur Specific [place] Urine Protein Urine Glucose (UA) Urine Ketones Urine Blood Urine Nitrite Urine Bilirubin Urine Urobilinogen Ur Leukocyte Esterase Influ A Molecular Assay Negative by naat Influ B Molecular Assay Negative by naat 01/28/19 01/28/19 01/28/19 16:15 17:55 19:05 WBC RBC Hgb Hct MCV MCH MCHC RDW Coeff of David Plt Count Immature Gran % (Auto) Neut % (Auto) Lymph % (Auto) Am[place] % (Auto) Eos % (Auto) Baso % (Auto) Immature Gran # (Auto) Neut # (Auto) Lymph # (Auto) [place] # (Auto) Eos # (Auto) Baso # (Auto) Sodium Potassium Chloride Carbon Dioxide Anion Gap BUN Creatinine Estimated GFR (MDRD) BUN/Creatinine Ratio Glucose Lactic Acid < 0.50 L Calcium Total Bilirubin AST ALT Alkaline Phosphatase Total Protein Albumin Globulin Albumin/Globulin Ratio Amylase Lipase Procalcitonin < 0.05 Urine Color Yellow Urine Clarity Clear Urine pH 5.5 Ur Specific [place] 1.025 Urine Protein Negative Urine Glucose (UA) Negative Urine Ketones Trace Urine Blood Negative Urine Nitrite Negative Urine Bilirubin Negative Urine Urobilinogen 0.2 Ur Leukocyte Esterase Negative Influ A Molecular Assay Influ B Molecular Assay Orders Category Date Time Status EKG-(ED ONLY) Stat CARDIO 01/28/19 15:49 Completed NPO REMINDER: IMAGING ONCE CARE 01/28/19 15:49 Completed AMYLASE Stat LAB 01/28/19 16:15 Completed BLOOD CULTURE (ED ONLY) Stat LAB 01/28/19 17:55 Results CBC W/ AUTO DIFF Stat LAB 01/28/19 16:15 Completed CMP [COMPREHENSIVE METABOLIC PANEL] Stat LAB 01/28/19 16:15 Completed FLU A & B MOLECULAR [FLU A/B MOLECULAR] Stat LAB 01/28/19 15:54 Completed LACTIC ACID Stat LAB 01/28/19 17:55 Completed LIPASE Stat LAB 01/28/19 16:15 Completed PROCALCITONIN Stat LAB 01/28/19 16:15 Completed UA [URINALYSIS C & S IF INDICATED] Stat LAB 01/28/19 19:05 Completed 0.9 % Sodium Chloride [Saline Flush] MEDS 01/28/19 15:49 Discontinued 1 syr IVF PRN PRN Ondansetron HCl/Pf [Zofran 4 mg/2 ml] MEDS 01/28/19 15:40 Discontinued 4 mg IVP ONCE STA Promethazine HCl [Phenergan 25 mg/ml Vial] MEDS 01/28/19 16:29 Discontinued 25 mg .ROUTE .STK-MED ONE Promethazine HCl [Phenergan 25 mg/ml Vial] 25 mg MEDS 01/28/19 16:26 Discontinued 0.9 % Sodium Chloride [Sodium Chloride] 50 ml IV ONCE Sodium Chloride 0.9% [Sodium Chloride] 1,000 ml MEDS 01/28/19 15:00 Discontinued IV BOLUS Sodium Chloride 0.9% [Sodium Chloride] 1,000 ml MEDS 01/28/19 17:54 Discontinued IV BOLUS CHEST, 1V AP ONLY Stat RADS 01/28/19 15:[address] ABDOMEN/PELVIS WO CONTRAST Stat RADS 01/28/19 15:49 Completed Medications Discontinued Medications Generic Name Dose Route Start Last Admin Trade Name Freq PRN Reason Stop Dose Admin Promethazine HCl 25 mg/ Sodium 51 mls @ 75 mls/hr 01/28/19 16:26 01/28/19 16: 32 Chloride IV 01/28/19 17:06 75 mls/hr ONCE STA Administration Sodium Chloride 1,000 mls @ 500 mls/hr 01/28/19 17:54 01/28/19 18:17 Sodium Chloride IV 01/28/19 19:53 500 mls/hr BOLUS STA Administration Sodium Chloride 1,000 mls @ 500 mls/hr 01/28/19 15:00 01/28/19 15:05 Sodium Chloride IV 01/28/19 16:59 500 mls/hr BOLUS STA Administration Ondansetron HCl 4 mg 01/28/19 15:40 01/28/19 15:48 Zofran 4 Mg/2 Ml IVP 01/28/19 15:41 4 mg ONCE STA Administration Sodium Chloride 1 syr 01/28/19 15:49 01/28/19 16:32 Saline Flush IVF 1 syr PRN PRN Administration To flush IV Vital Signs: Temp Pulse Resp BP Pulse Ox 01/28/19 14:07 97.6 F 64 20 149/80 H 95 Departure - Departure Time of Disposition: 19:20 Disposition: HOME SELF-CARE Discharge Problem: Adynamic ileus, Gastroenteritis, COPD (chronic obstructive pulmonary disease) Instructions: Gastroenteritis (ED) Condition: Good Pt referred to PMD for follow-up: Yes IPMP verified?: No Additional Instructions: Instructed patient to maintain adequate oral fluid intake Advance diet as tolerated See PCP this week Allergies/Adverse Reactions: Allergies Penicillins Adverse Reaction (Verified 01/28/19 14:13) Hives Home Medications: Ambulatory Orders Diazepam 5 mg PO TID 12/08/14 Albuterol Sulfate [Proair Hfa] 2 puff IH BID 09/17/15 Disposition Discussed With: Patient, Family (Explained CXR revealed no acute changes necessitating antibiotic therapy/anxious for discharge) Additional Comments Additional Comments: Discussed hospitalizatioin but patient has improved and in in NAD;. Requesting discharge to home. Respiratory status clinically stable. CXR neg for pneumonia
[2019-01-28] MEDS ORDERED: PHENERGAN 25 MG/ML VIAL 25 MG in SODIUM CHLORIDE 50 ML IV STA (16:26)
[2019-01-28] MEDS ORDERED: PHENERGAN 25 MG/ML VIAL ONE (16:29)
--- NOTE | 2019-01-28 16:48 | CT ---
EXAM: CT of the abdomen pelvis without contrast History: Nausea and vomiting with abdominal cramping. Comparison: CT abdomen pelvis 05/13/2017 Technique: Multiplanar CT images through the abdomen pelvis were obtained without the administration of IV contrast Findings: There is bronchial wall thickening within the lower lungs and nodular infiltrates are seen within the right middle lobe and lingula as well as the right lower lobe. Scarring again seen withi n the right costophrenic angle. No acute osseous abnormalities. Coronary calcifications. New IVC filter. Atherosclerotic vascular calcifications. No renal stones and no hydronephrosis. Status post cholecystectomy. Small spleen. Calcified granulomas seen within the liver and spleen. No fra nk peripancreatic inflammation. Adrenal glands are unremarkable. Fluid seen in the stomach. There are several mildly dilated fluid-filled loops of small bowel with mucosal prominence. No bladder wal l thickening. Moderate stool seen distending the rectum. The appendix is not seen. Impression: 1. Mildly dilated fluid-filled loops of small bowel and could be due to enteritis but cannot exclude developing partial small bowel obstruction. If symptoms persist, recommend further evaluation with IV contrast enhanced study. 2. Pneumonia seen within the lower lungs. 3. Coronary artery disease
--- NOTE | 2019-01-28 18:25 | DI ---
EXAM: Single view chest COMPARISON: Chest Xray from 09/30/2016 HISTORY: Abdominal pain FINDINGS: There is no free air under the diaphragms. There is continued scarring and atelectasis and volume loss in the right base. Cardiac and mediastinal silhouettes show no acute abnormality. Partia l visualization of an IVC filter. There has been prior cholecystectomy. No acute soft tissue or osse ous abnormalities. IMPRESSION: No active disease.
[2019-01-28] MEDS ORDERED: ZITHROMAX PO STA (19:39)
== END 2019-01-28 20:30 | disposition home or self-care (01) ==
LOC: ED 14:05
DX: R11.2 Nausea with vomiting, unspecified (principal); R10.9 Unspecified abdominal pain; R61 Generalized hyperhidrosis; R63.0 Anorexia; R53.1 Weakness; R53.81 Other malaise; K59.00 Constipation, unspecified; K56.0 Paralytic ileus; J44.9 Chronic obstructive pulmonary disease, unspecified; K52.9 Noninfective gastroenteritis and colitis, unspecified
CPT/HCPCS: 36415; 80053; 81001; 82150; 83605; 83690; 84145; 85025; 87040; 87502; 93005; 93010; 96361; 96365; 99284

== ENCOUNTER 2019-02-04 13:53 | Emergency (ER) ==
[2019-02-04 14:03] VITALS: BP 151/71; TEMP 98.4; BMI 18.8
[2019-02-04] MEDS ORDERED: ZOFRAN 4 MG/2 ML IVP STA (14:11)
[2019-02-04] MEDS ORDERED: DEMEROL 25 MG/ML VIAL IVP STA (14:11)
[2019-02-04] MEDS ORDERED: SODIUM CHLORIDE 1,000 ML IV STA ×2 (14:11)
--- NOTE | 2019-02-04 16:15 | CT ---
EXAM: CT of the abdomen pelvis without contrast. CT of the abdomen and pelvis with contrast. HISTORY: Abdominal pain.. COMPARISON: 01/28/2019 TECHNIQUE: Contiguous axial images at 5 mm intervals were obtained from lung bases to the pubic symp hysis. The study was performed before and after IV contrast. Oral contrast was not given. CONTRAST: 75 ml Omnipaque 300 FINDINGS: CHEST: The lung bases are clear. Linear fibrotic changes are seen in the right base. Heart size is wi thin normal limits. ABDOMEN: There is a significant lack of intra-abdominal fat which limits evaluation. LIVER: The liver demonstrates normal homogeneous enhancement without solid mass lesions or intrahep atic ductal dilatation. GALLBLADDER: The gallbladder is absent. There are clips the gallbladder fossa. There is no fluid or inflammation. No gallstones are identified. PANCREAS: The pancreas demonstrates normal homogeneous enhancement without solid masses or surround ing inflammation. SPLEEN: The spleen demonstrates normal homogeneous enhancement. No mass lesions are identified. ADRENAL GLANDS: Normal. KIDNEYS: The kidneys demonstrate normal homogeneous enhancement without solid masses, hydronephrosi s or nephrolithiasis. There are no obstructing ureteral stones. AORTA: Moderate aortic calcifications are seen. The aorta is well opacified. There is no aneurysm o r dissection. RETROPERITONEUM: There is no significant retroperitoneal or mesenteric adenopathy. No fluid colle ctions or mass lesions. An inferior cava filter is noted. BOWEL: The bowel is unopacified. There are no dilated loops of small bowel to suggest small bowel obstruction. There is no free fluid or free air. The appendix is not identified on the study.. The re is no fluid or inflammation in the right lower quadrant. There is ill-defined thickening of the w all of the transverse and descending colon. Questionable inflammatory changes are seen. There is a large amount of stool in the rectum. PELVIS: BLADDER: The bladder is well distended and appears normal. GENITOURINARY STRUCTURES: The uterus and ovaries are not well seen. OSSEOUS STRUCTURES: Normal for age. IMPRESSION: 1. Questionable bowel wall thickening of the transverse and descending colon. No obstruction. No f ree fluid or free air. 2. Mild atherosclerotic disease aorta. 3. Post cholecystectomy.
--- NOTE | 2019-02-04 16:25 | DI ---
EXAM: Two view(s) chest. HISTORY: Vomiting. COMPARISON: 01/28/2019 and 09/30/2016 TECHNIQUE: Two view(s) of the chest. FINDINGS: Lungs: There is hyperexpansion of the lungs with flattening of the diaphragms. The lungs are clear without consolidation or effusion. There is persistent blunting right costop hrenic angle which has appearance of scarring. A similar appearance as seen on prior studies. There are no suspicious nodules. There is no pneumothorax. Cardiovascular: The heart size and pulmonary vasculature is normal.. The aorta is unremarkable. Huma/Mediastinum: Normal. Osseous structures. Normal for age. IMPRESSION: 1. Hyperexpansion of chest consistent chronic obstructive pulmonary disease. 2. Probable scarring in the right base. 3. No acute pulmonary disease.
--- NOTE | 2019-02-04 16:26 | DI ---
Exam: KUB. HISTORY: Vomiting.. COMPARISON: CT dated three 08/17/2019. TECHNIQUE: A single frontal view of the abdomen and pelvis. FINDINGS: There hemidiaphragm is elevated. There is contrast in the renal collecting system from pre vious CT. An inferior cava filter is noted. Bowel gas pattern: Normal Abnormal calcifications: None Bones: Normal for age. Other: There is contrast in the bladder. IMPRESSION: 1. Nonobstructive bowel gas pattern. 2. Contrast in the bladder and renal collecting system from prior CT.
--- NOTE | 2019-02-04 17:46 | ED.PDOC ---
General ED Provider: Dr. RAFAL DURAN-ER Chief Complaint: Nausea/Vomiting Stated Complaint: im vomiting--- Time Seen by Physician: 13:55 Mode of Arrival: Walk-In Information Source: Patient Exam Limitations: No limitations Primary Care Provider: TEE ÁLVAREZ Nursing and Triage Documentation Reviewed and Agree: Yes Does patient meet sepsis criteria?: No System Inflammatory Response Syndrome: Not Applicable Sepsis Protocol: For patient's 13 years and over: Temp is 96.8 and below OR 101 and greater Pulse >90 BPM Resp >20/minute Acutely Altered Mental Status Are patient's symptoms suggestive of a new infection, such as: -Pneumonia -Skin, Soft Tissue -Endocarditis -UTI -Bone, Joint Infection -Implantable Device -Acute Abdominal Infection -Wound Infection -Meningitis -Blood Stream Catheter Infection -Unknown GI Complaint Exam - Vomiting/Diarrhea Complaint/Exam Onset/Duration: 2 days Symptoms Are: Still present Initial Severity: Mild Current Severity: Moderate Character of Vomiting: Reports: Non-bilious Aggravating: Reports: None Alleviating: Reports: None Associated Signs and Symptoms: Denies: Dizziness, Light-headedness, Melena, Hematemesis, Fever, Abdominal pain, Cramping Abdominal Findings: Present: None [place] Respirations Present: No Differential Diagnoses: Bowel Obstruction, Dehydration, Gastritis, Viral Gastroenteritis, Bacterial Gastroenteritis, UTI Review of Systems - Review Of Systems Constitutional: Reports: No symptoms Eyes: Reports: No symptoms Ears, Nose, Mouth, Throat: Reports: No symptoms Respiratory: Reports: No symptoms Cardiac: Reports: No symptoms GI: Reports: Abdominal pain, Nausea, Vomiting : Reports: No symptoms Musculoskeletal: Reports: No symptoms Skin: Reports: No symptoms Neurological: Reports: No symptoms Endocrine: Reports: No symptoms Hematologic/Lymphatic: Reports: No symptoms All Other Systems: Reviewed and Negative Past Medical History - Past Medical History Previously Healthy: Yes Endocrine: Reports: None Cardiovascular: Reports: None Respiratory: Reports: COPD Hematological: Reports: Anemia Gastrointestinal: Reports: None Genitourinary: Reports: None Neuro/Psych: Reports: None Musculoskeletal: Reports: None Cancer: Reports: None Last Menstrual Period: unknown - Surgical History General Surgical History: Reports: Adenoidectomy, Hysterectomy, Cholecystectomy , Other - Family History Family History: Reports: Unknown - Social History Smoking Status: Current every day smoker, Heavy tobacco smoker Hx Substance Use: No Alcohol Screening: None Physical Exam - Physical Exam Appearance: Well-appearing, No pain distress, Well-nourished Eyes: SHO, EOMI, Conjunctiva clear ENT: Ears normal, Nose normal, Oropharynx normal Neck: Supple Respiratory: Airway patent, Breath sounds clear, Breath sounds equal, Respirations nonlabored Cardiovascular: RRR, Pulses normal, No rub, No murmur GI/: Soft, Nontender, No masses, Bowel sounds normal, No Organomegaly Musculoskeletal: Normal strength, ROM intact, No edema, No calf tenderness Skin: Warm, Dry, Normal color Neurological: Sensation intact, Motor intact, Reflexes intact, Cranial nerves intact, Alert, Oriented Psychiatric: Affect appropriate, Mood appropriate Interpretation - Radiology Interpretation Radiology Interpretation By: Radiologist Radiology Results: Negative Exam Interpreted: CXR, CT Scan - EKG Interpretation Time of EKG #1: 17:46 Rate: Normal Rhythm: Sinus Ectopy: None [place]: NL ST Segment: Normal Interpretation: nsr Re-Evaluation - Re-Evaluation Time of Re-Evaluation: 17:51 Status: Improved Vital Signs Stable: Yes Pain Level: 0 Appearance: NAD Lungs: Clear Skin: Warm and Dry Neuro: Alert and Oriented X3 CV: RRR Additional Comments: tolerating liquids without vomiting Critical Care Note - Critical Care Note Total Time (mins): 0 Course - Course Hematology/Chemistry: 02/04/19 14:35 02/04/19 14:35 Orders, Labs, Meds: Lab Review 02/04/19 02/04/19 02/04/19 14:33 14:35 14:35 WBC 8.94 RBC 4.40 Hgb 13.1 Hct 39.9 MCV 90.7 MCH 29.8 MCHC 32.8 RDW Coeff of David 14.9 H Plt Count 473 H Immature Gran % (Auto) 0.3 Neut % (Auto) 78.9 Lymph % (Auto) 16.4 [place] % (Auto) 3.9 Eos % (Auto) 0.1 Baso % (Auto) 0.4 Immature Gran # (Auto) 0.0 Neut # (Auto) 7.0 H Lymph # (Auto) 1.5 [place] # (Auto) 0.4 Eos # (Auto) 0.0 Baso # (Auto) 0.0 ESR 6 Sodium 137.7 Potassium 3.70 Chloride 104.0 Carbon Dioxide 26.4 Anion Gap 11.00 BUN 8.3 Creatinine 0.44 L Estimated GFR (MDRD) 144.00 BUN/Creatinine Ratio 18.86 Glucose 123.1 H Lactic Acid Calcium 8.55 Total Bilirubin 0.28 AST 22.7 ALT 14.9 Alkaline Phosphatase 74.3 Total Creatine Kinase 33.3 Troponin I 0.013 Total Protein 6.47 Albumin 3.68 Globulin 2.79 Albumin/Globulin Ratio 1.31 Amylase 91.9 Lipase 37.2 Procalcitonin Urine Color Urine Clarity Urine pH Ur Specific [place] Urine Protein Urine Glucose (UA) Urine Ketones Urine Blood Urine Nitrite Urine Bilirubin Urine Urobilinogen Ur Leukocyte Esterase Urine Microscopic RBC Urine Microscopic WBC Ur Squamous Epith Cells Influ A Molecular Assay Negative by naat Influ B Molecular Assay Negative by naat 02/04/19 02/04/19 02/04/19 14:35 14:35 16:40 WBC RBC Hgb Hct MCV MCH MCHC RDW Coeff of David Plt Count Immature Gran % (Auto) Neut % (Auto) Lymph % (Auto) [place] % (Auto) Eos % (Auto) Baso % (Auto) Immature Gran # (Auto) Neut # (Auto) Lymph # (Auto) [place] # (Auto) Eos # (Auto) Baso # (Auto) ESR Sodium Potassium Chloride Carbon Dioxide Anion Gap BUN Creatinine Estimated GFR (MDRD) BUN/Creatinine Ratio Glucose Lactic Acid 0.70 Calcium Total Bilirubin AST ALT Alkaline Phosphatase Total Creatine Kinase Troponin I Total Protein Albumin Globulin Albumin/Globulin Ratio Amylase Lipase Procalcitonin < 0.05 Urine Color Yellow Urine Clarity Clear Urine pH 7.0 Ur Specific [place] 1.010 Urine Protein Trace Urine Glucose (UA) Negative Urine Ketones Negative Urine Blood Trace-intact Urine Nitrite Negative Urine Bilirubin Negative Urine Urobilinogen 0.2 Ur Leukocyte Esterase Negative Urine Microscopic RBC 0-2 Urine Microscopic WBC 0-2 Ur Squamous Epith Cells 0-2 Influ A Molecular Assay Influ B Molecular Assay Orders Category Date Time Status EKG-(ED ONLY) Stat CARDIO 02/04/19 14:10 Completed NPO REMINDER: IMAGING ONCE CARE 02/04/19 14:12 Completed IV [ED IV/MEDIPORT/POWERPORT] .ONCE EMERGENCY 02/04/19 14:10 Active AMYLASE Stat LAB 02/04/19 14:35 Completed BLOOD CULTURE (ED ONLY) Stat LAB 02/04/19 14:35 Received CBC W/ AUTO DIFF Stat LAB 02/04/19 14:35 Completed COMPREHENSIVE METABOLIC PANEL Stat LAB 02/04/19 14:35 Completed CREATINE KINASE Stat LAB 02/04/19 14:35 Completed ESR Stat LAB 02/04/19 14:35 Completed FLU A/B MOLECULAR Stat LAB 02/04/19 14:33 Completed LACTIC ACID Stat LAB 02/04/19 14:35 Completed LIPASE Stat LAB 02/04/19 14:35 Completed MOLECULAR GROUP A STREP Stat LAB 02/04/19 14:33 Completed PROCALCITONIN Stat LAB 02/04/19 14:35 Completed TROPONIN I Stat LAB 02/04/19 14:35 Completed URINALYSIS C & S IF INDICATED Stat LAB 02/04/19 16:40 Completed 0.9 % Sodium Chloride [Saline Flush] MEDS 02/04/19 14:10 Active 1 syr IVF PRN PRN Meperidine HCl/Pf [Demerol 25 mg/ml Vial] MEDS 02/04/19 14:11 Discontinued 25 mg IVP ONCE STA Ondansetron HCl/Pf [Zofran 4 mg/2 ml] MEDS 02/04/19 14:11 Discontinued 4 mg IVP ONCE STA Sodium Chloride 0.9% [Sodium Chloride] 1,000 ml MEDS 02/04/19 14:11 Discontinued IV BOLUS Sodium Chloride 0.9% [Sodium Chloride] 1,000 ml MEDS 02/04/19 14:11 Discontinued IV BOLUS ABDOMEN 1 VIEW Stat RADS 02/04/19 14:[address] ABDOMEN/PELVIS W/WO CONTRAS Stat RADS 02/04/19 14:11 Completed CXR [CHEST, 2 VIEWS PA & LAT] Stat RADS 02/04/19 14:12 Completed Medications Generic Name Dose Route Start Last Admin Trade Name Freq PRN Reason Stop Dose Admin Sodium Chloride 1 syr 02/04/19 14:10 02/04/19 15:09 Saline Flush IVF 1 syr PRN PRN Administration To flush IV Discontinued Medications Generic Name Dose Route Start Last Admin Trade Name Freq PRN Reason Stop Dose Admin Sodium Chloride 1,000 mls @ 1,000 mls/hr 02/04/19 14:11 02/04/19 15:09 Sodium Chloride IV 02/04/19 15:10 1,000 mls/hr BOLUS STA Administration Sodium Chloride 1,000 mls @ 1,000 mls/hr 02/04/19 14:11 Sodium Chloride IV 02/04/19 15:10 BOLUS STA Meperidine HCl 25 mg 02/04/19 14:11 02/04/19 15:05 Demerol 25 Mg/Ml Vial IVP 02/04/19 14:12 25 mg ONCE STA Administration Ondansetron HCl 4 mg 02/04/19 14:11 02/04/19 15:13 Zofran 4 Mg/2 Ml IVP 02/04/19 14:12 4 mg ONCE STA Administration Vital Signs: Temp Pulse Resp BP Pulse Ox 02/04/19 13:54 98.4 F 55 L 20 151/71 H 97 Departure - Departure Time of Disposition: 17:52 Disposition: HOME SELF-CARE Discharge Problem: Vomiting Instructions: Gastroenteritis (ED) Condition: Good Pt referred to PMD for follow-up: Yes IPMP verified?: No Additional Instructions: phenergan supp 25mg q 4hrs prn #6---sips of liquids---see your pcp tomorrow about getting referral to intelligence engineer Allergies/Adverse Reactions: Allergies Penicillins Adverse Reaction (Verified 02/04/19 14:04) Hives Home Medications: Ambulatory Orders Diazepam 5 mg PO TID 12/08/14 Albuterol Sulfate [Proair Hfa] 2 puff IH BID 09/17/15 Disposition Discussed With: Patient, Family
== END 2019-02-04 18:06 | disposition home or self-care (01) ==
LOC: ED 13:53
DX: R11.2 Nausea with vomiting, unspecified (principal); R10.9 Unspecified abdominal pain; F17.210 Nicotine dependence, cigarettes, uncomplicated
CPT/HCPCS: 36415; 80053; 81001; 82150; 82550; 83605; 83690; 84145; 84484; 85025; 85651; 87040; 87502; 87651; 93005; 93010; 96361; 96374; 96375; 99283

== ENCOUNTER 2019-03-21 20:09 | Emergency (ER) ==
[2019-03-21 20:11] VITALS: TEMP 99.1; BMI 17.4
[2019-03-21] MEDS ORDERED: LACTATED RINGERS 1,000 ML IV STA (20:40)
--- NOTE | 2019-03-21 20:46 | ED.PDOC ---
General ED Provider: Dr. ASHWIN CORDERO Chief Complaint: Weakness Stated Complaint: Weakness and light headedness for few days. States had a colonoscopy recently for which they were told was suspicious for cancer. has had a poor appetite. Time Seen by Physician: 20:46 Mode of Arrival: Walk-In Information Source: Patient, Family Primary Care Provider: TEE ÁLVAREZ Nursing and Triage Documentation Reviewed and Agree: Yes Does patient meet sepsis criteria?: No System Inflammatory Response Syndrome: Not Applicable Sepsis Protocol: For patient's 13 years and over: Temp is 96.8 and below OR 101 and greater Pulse >90 BPM Resp >20/minute Acutely Altered Mental Status Are patient's symptoms suggestive of a new infection, such as: -Pneumonia -Skin, Soft Tissue -Endocarditis -UTI -Bone, Joint Infection -Implantable Device -Acute Abdominal Infection -Wound Infection -Meningitis -Blood Stream Catheter Infection -Unknown Review of Systems - Review Of Systems Constitutional: Reports: Weakness, Loss of appetite Eyes: Reports: No symptoms Ears, Nose, Mouth, Throat: Reports: No symptoms Respiratory: Reports: No symptoms Cardiac: Reports: Lightheadedness GI: Reports: No symptoms : Reports: No symptoms Musculoskeletal: Reports: No symptoms Skin: Reports: No symptoms Neurological: Reports: Anxiety Endocrine: Reports: No symptoms Hematologic/Lymphatic: Reports: No symptoms All Other Systems: Reviewed and Negative Past Medical History - Past Medical History Previously Healthy: Yes Endocrine: Reports: None Cardiovascular: Reports: None Respiratory: Reports: COPD Hematological: Reports: Anemia Gastrointestinal: Reports: None Genitourinary: Reports: None Neuro/Psych: Reports: None Musculoskeletal: Reports: None Cancer: Reports: None Last Menstrual Period: none - Surgical History General Surgical History: Reports: Adenoidectomy, Hysterectomy, Cholecystectomy , Other - Family History Family History: Reports: Unknown - Social History Smoking Status: Current every day smoker, Heavy tobacco smoker Hx Substance Use: No Alcohol Screening: None - Immunizations Tetanus Shot up to Date: Yes Physical Exam - Physical Exam Appearance: Ill-appearing, Thin Ill-appearing: Mild Pain Distress: None Eyes: SOH, EOMI, Conjunctiva clear ENT: Ears normal, Nose normal, Oropharynx normal Respiratory: Airway patent, Breath sounds clear, Breath sounds equal, Respirations nonlabored Cardiovascular: RRR, Pulses normal, No rub, No murmur GI/: Soft, Nontender, No masses, Bowel sounds normal, No Organomegaly Musculoskeletal: Normal strength, ROM intact, No edema, No calf tenderness Skin: Warm, Dry, Normal color Neurological: Sensation intact, Motor intact, Reflexes intact, Cranial nerves intact, Alert, Oriented Psychiatric: Affect appropriate, Mood appropriate Interpretation - Radiology Interpretation Radiology Interpretation By: Radiologist Radiology Results: No acute changes Exam Interpreted: Portable CXR Critical Care Note - Critical Care Note Total Time (mins): 0 Course - Course Hematology/Chemistry: 03/21/19 20:52 03/21/19 20:52 Orders, Labs, Meds: Lab Review 03/21/19 03/21/19 03/21/19 20:52 20:52 22:17 WBC 19.42 H RBC 4.16 L Hgb 12.7 Hct 37.0 MCV 88.9 MCH 30.5 MCHC 34.3 RDW Coeff of David 15.1 H Plt Count 301 Immature Gran % (Auto) 0.4 Neut % (Auto) 65.4 Lymph % (Auto) 24.4 [place] % (Auto) 8.1 Eos % (Auto) 1.3 Baso % (Auto) 0.4 Immature Gran # (Auto) 0.1 Neut # (Auto) 12.7 H Lymph # (Auto) 4.7 H [place] # (Auto) 1.6 Eos # (Auto) 0.3 Baso # (Auto) 0.1 Sodium 138.8 Potassium 3.38 L Chloride 106.8 Carbon Dioxide 26.1 Anion Gap 9.28 BUN 5.0 L Creatinine 0.45 L Estimated GFR (MDRD) 140.00 BUN/Creatinine Ratio 11.11 Glucose 90.1 Calcium 8.82 Total Bilirubin 0.61 AST 31.3 ALT 25.8 Alkaline Phosphatase 68.4 Total Protein 6.01 L Albumin 3.73 Globulin 2.28 Albumin/Globulin Ratio 1.63 Amylase 56.7 Urine Color Yellow Urine Clarity Clear Urine pH 8.0 Ur Specific [place] 1.015 Urine Protein Negative Urine Glucose (UA) Negative Urine Ketones Negative Urine Blood Trace-intact Urine Nitrite Negative Urine Bilirubin Negative Urine Urobilinogen 0.2 Ur Leukocyte Esterase Negative Urine Microscopic RBC 2-5 Urine Microscopic WBC 2-5 Ur Squamous Epith Cells 2-5 Orders Category Date Time Status ED IV/MEDIPORT/POWERPORT .ONCE EMERGENCY 03/21/19 20:39 Active ED ORTHOSTATIC VITAL SIGNS .ONCE EMERGENCY 03/21/19 20:40 Active AMYLASE Stat LAB 03/21/19 20:52 Completed CBC W/ AUTO DIFF Stat LAB 03/21/19 20:52 Completed COMPREHENSIVE METABOLIC PANEL Stat LAB 03/21/19 20:52 Completed URINALYSIS C & S IF INDICATED Stat LAB 03/21/19 22:17 Completed 0.9 % Sodium Chloride [Saline Flush] MEDS 03/21/19 20:40 Ordered 1 syr IVF PRN PRN Ringers Lactated Solution [Lactated Ringers] 1,000 ml MEDS 03/21/19 20:40 Discontinued IV BOLUS CHEST, 1V AP ONLY Stat RADS 03/21/19 22:54 Completed Medications Generic Name Dose Route Start Last Admin Trade Name Freq PRN Reason Stop Dose Admin Sodium Chloride 1 syr 03/21/19 20:40 Saline Flush IVF PRN PRN To flush IV Discontinued Medications Generic Name Dose Route Start Last Admin Trade Name Freq PRN Reason Stop Dose Admin Lactated Ringer's 1,000 mls @ 1,000 mls/hr 03/21/19 20:40 03/21/19 20:47 Lactated Ringers IV 03/21/19 21:39 1,000 mls/hr BOLUS STA Administration Vital Signs: Temp Pulse Resp BP Pulse Ox 03/21/19 20:47 70 107/65 93 L 03/21/19 20:46 63 112/70 03/21/19 20:09 99.1 F 73 18 114/70 88 L Departure - Departure Time of Disposition: 00:10 Disposition: HOME SELF-CARE Discharge Problem: Weakness generalized Instructions: Weakness (ED) Condition: Fair Pt referred to PMD for follow-up: Yes IPMP verified?: No Additional Instructions: Follow up with pcp in 1-2 days Return if worse Allergies/Adverse Reactions: Allergies Penicillins Adverse Reaction (Verified 02/04/19 14:04) Hives Home Medications: Ambulatory Orders Diazepam 5 mg PO TID 12/08/14 Albuterol Sulfate [Proair Hfa] 2 puff IH BID 09/17/15 Dicyclomine HCl 20 mg PO DAILY 03/21/19 Methimazole 5 mg PO BID 03/21/19 Metronidazole [Flagyl] 500 mg PO BID 03/21/19 Oxybutynin Chloride [Ditropan] 5 mg PO BID 03/21/19 Disposition Discussed With: Patient, Family
[2019-03-21 20:48] VITALS: BP 107/65
--- NOTE | 2019-03-21 23:32 | DI ---
EXAM: Single-view chest HISTORY: Cough fever COMPARISON: Single-view chest 03/16/2019 FINDINGS: The cardiomediastinal silhouette is stable. The left lung is clear.. Stable scarring is noted at the right lung base.. Postoperative changes in relation to the left eighth rib IMPRESSION: Stable scarring right lung base without acute findings. Prior cholecystectomy
== END 2019-03-22 00:30 | disposition home or self-care (01) ==
LOC: ED 20:09
DX: R53.1 Weakness (principal); R42 Dizziness and giddiness; F17.210 Nicotine dependence, cigarettes, uncomplicated
CPT/HCPCS: 36415; 80053; 81001; 82150; 85025; 96360; 96361; 99284